=== PATIENT | female | born 1945 | race Caucasian/White ===

== ENCOUNTER 2024-01-05 18:12 | Inpatient (IN) | payer OTHER ==
[2024-01-08] MEDS ORDERED: hydrOXYzine 10 MG TAB PO PRN (17:39)
[2024-01-08] MEDS: Potassium Chloride 10 MEQ TAB PO SCH (22:02)
[2024-01-08] MEDS: Atorvastatin Calcium 10 MG TAB PO SCH (22:03)
[2024-01-08] MEDS: Carvedilol 6.25 MG TAB PO SCH (22:04)
[2024-01-09 04:53] LABS: #Basophils 0.1 thou/uL (0.0-0.2); #Eosinophils 0.4 thou/uL (0.0-0.7); #Lymphocytes 2.6 thou/uL (1.20-3.40); #Monocytes 1.3 thou/uL (0.11-0.59); #Neutrophils 6.3 thou/uL (1.40-6.50); %Basophils 0.8 % (0.0-1.0); %Eosinophils 4.1 % (0.0-10.0); %Lymphocytes 24.5 % (21.0-51.0); %Monocytes 11.8 % (0.0-10.0); %Neutrophils 58.9 % (42.0-75.0); Hematocrit 25.7 % (36.0-47.0); Hemoglobin 8.7 g/dL (12.0-16.0); Mean Corpuscular HGB CONC 33.7 g/dL (32.0-36.0); Mean Corpuscular Hemoglobin 28.3 pg (27.0-31.0); Mean Corpuscular Volume 83.8 fl (78.0-98.0); Mean Platelet Volume 5.3 fL (7.4-10.4); Platelet Count 334 10x3/uL (130-400); RBC Distribution Width 12.7 % (11.5-14.5); Red Blood Cell (RBC) Count 3.07 mill/uL (4.20-5.40); White Blood Cell (WBC) Count 10.7 10x3/uL (4.8-10.8)
[2024-01-09 05:17] LABS: ALT (SGPT) 20 U/L (8-55); AST (SGOT) 29 U/L (5-34); Albumin 2.8 g/dL (3.4-4.8); Alkaline Phosphatase 70 U/L (40-110); Anion Gap 12 mmol/L (10-20); BUN (Urea Nitrogen) 13 mg/dL (9.8-20.1); Bilirubin, Total 0.9 mg/dL (0.2-1.2); Calc. Creatinine Clearance 0 mL/min (70-130); Calcium 9.1 mg/dL (7.8-10.44); Carbon Dioxide 26 mmol/L (23-31); Chloride 101 mmol/L (98-107); Estimated GFR 80; Globulin 2.8 g/dL (2.4-3.5); Glucose 112 mg/dL (83-110); Potassium 5.5 mmol/L (3.5-5.1); Protein, Total 5.6 g/dL (5.8-8.1); Sodium 133 mmol/L (136-145)
[2024-01-09] MEDS: Levothyroxine Sodium 50 MCG TAB PO SCH (05:23)
[2024-01-09] MEDS: Aspirin 325 mg Enteric Coated Tablet PO SCH (09:54)
[2024-01-09] MEDS: Furosemide 40 MG TAB PO SCH (09:55)
[2024-01-09] MEDS: Losartan 50 MG TAB PO SCH (09:55)
[2024-01-09] MEDS: Enoxaparin 40 MG (0.4 mL) SYRINGE SC SCH (09:55)
[2024-01-09] MEDS: Polyethylene Glycol 3350 17 GM Packet PO PRN (09:55)
[2024-01-09] MEDS: traMADol HCl 50 MG TAB PO PRN (10:06)
[2024-01-09] MEDS ORDERED: Potassium Chloride 10 MEQ TAB PO SCH (17:00)
[2024-01-09] MEDS ORDERED: hydrOXYzine 10 MG TAB PO SCH (21:00)
[2024-01-09] MEDS: Sulfameth/Trimethoprim DS 800-160mg TAB PO SCH (21:20)
[2024-01-10] MEDS: Levothyroxine Sodium 25 MCG TAB PO SCH (06:01)
[2024-01-10] MEDS: traMADol HCl 50 MG TAB PO PRN (08:39)
[2024-01-10] MEDS: Ondansetron ODT 4 MG TAB PO PRN (09:17)
[2024-01-10] MEDS: Potassium Chloride 10 MEQ TAB PO SCH (09:18)
[2024-01-10] MEDS: Saccharomyces boulardii 250 MG CAP PO SCH (09:18)
[2024-01-10 10:56] VITALS: BMI 23.1
[2024-01-10] MEDS: Acetaminophen 325 MG TAB PO PRN (12:31)
[2024-01-11] MEDS: traMADol HCl 50 MG TAB PO PRN (14:10)
[2024-01-13] MEDS: Carvedilol 3.125 MG TAB PO SCH (20:49)
[2024-01-13] MEDS ORDERED: Carvedilol 3.125 MG TAB PO SCH (21:00)
[2024-01-14] MEDS: hydrOXYzine 10 MG TAB PO PRN (00:25)
[2024-01-14] MEDS: Losartan 25 MG TAB PO SCH (09:36)
[2024-01-15] MEDS ORDERED: Non-Formulary Item 1 EACH (Alendronate Sodium [Alendronate Sodium] 35 MG Tablet) PO SCH (09:00)
[2024-01-16] MEDS: Zolpidem Tartrate 5 MG TAB PO PRN (20:00)
[2024-01-17] MEDS ORDERED: Levothyroxine Sodium 25 MCG TAB ONE ×2 (09:11→16:30)
[2024-01-17] MEDS ORDERED: Saccharomyces boulardii 250 MG CAP ONE ×2 (09:11→16:30)
[2024-01-17] MEDS ORDERED: Enoxaparin 40 MG (0.4 mL) SYRINGE ONE ×2 (09:11→16:30)
[2024-01-17] MEDS ORDERED: Furosemide 40 MG TAB ONE (09:11)
[2024-01-17] MEDS ORDERED: traMADol HCl 50 MG TAB ONE ×2 (09:11→16:30)
[2024-01-17] MEDS ORDERED: Aspirin 325 mg Enteric Coated Tablet ONE ×2 (09:11→16:30)
[2024-01-17] MEDS ORDERED: Potassium Chloride 10 MEQ TAB ONE ×2 (09:11→16:30)
[2024-01-17] MEDS ORDERED: Carvedilol 3.125 MG TAB ONE ×3 (09:11→16:15)
[2024-01-17] MEDS ORDERED: Losartan 25 MG TAB ONE ×2 (09:11→16:16)
[2024-01-17] MEDS ORDERED: Atorvastatin Calcium 10 MG TAB ONE (16:30)
[2024-01-17] MEDS ORDERED: Zolpidem Tartrate 5 MG TAB ONE (16:30)
[2024-01-18] MEDS ORDERED: Carvedilol 3.125 MG TAB ONE (16:14)
[2024-01-18] MEDS ORDERED: Losartan 25 MG TAB ONE (16:16)
[2024-01-18] MEDS ORDERED: Acetaminophen 325 MG TAB ONE (16:34)
[2024-01-18] MEDS ORDERED: Enoxaparin 40 MG (0.4 mL) SYRINGE ONE (16:34)
[2024-01-18] MEDS ORDERED: Saccharomyces boulardii 250 MG CAP ONE (16:34)
[2024-01-18] MEDS ORDERED: Aspirin 325 mg Enteric Coated Tablet ONE (16:34)
[2024-01-18] MEDS ORDERED: Potassium Chloride 10 MEQ TAB ONE (16:34)
[2024-01-18] MEDS ORDERED: Levothyroxine Sodium 25 MCG TAB ONE (16:34)
[2024-01-18] MEDS ORDERED: Atorvastatin Calcium 10 MG TAB ONE (16:34)
[2024-01-18] MEDS ORDERED: Furosemide 40 MG TAB ONE (16:34)
[2024-01-18] MEDS ORDERED: Zolpidem Tartrate 5 MG TAB ONE (16:34)
[2024-01-19 14:19] LABS: #Basophils 0.1 thou/uL (0.0-0.2); #Eosinophils 0.2 thou/uL (0.0-0.7); #Lymphocytes 1.6 thou/uL (1.20-3.40); #Monocytes 0.7 thou/uL (0.11-0.59); #Neutrophils 4.8 thou/uL (1.40-6.50); %Basophils 1.9 % (0.0-1.0); %Eosinophils 2.7 % (0.0-10.0); %Lymphocytes 21.3 % (21.0-51.0); %Monocytes 8.9 % (0.0-10.0); %Neutrophils 65.3 % (42.0-75.0); Hemoglobin 10.2 g/dL (12.0-16.0); Mean Corpuscular HGB CONC 31.7 g/dL (32.0-36.0); Mean Corpuscular Hemoglobin 27.2 pg (27.0-31.0); Mean Corpuscular Volume 85.7 fl (78.0-98.0); Mean Platelet Volume 5.6 fL (7.4-10.4); Platelet Count 531 10x3/uL (130-400); RBC Distribution Width 13.9 % (11.5-14.5); Red Blood Cell (RBC) Count 3.74 mill/uL (4.20-5.40); White Blood Cell (WBC) Count 7.4 10x3/uL (4.8-10.8)
[2024-01-19 14:36] LABS: ALT (SGPT) 25 U/L (8-55); AST (SGOT) 29 U/L (5-34); Albumin 3.5 g/dL (3.4-4.8); Alkaline Phosphatase 128 U/L (40-110); Anion Gap 16 mmol/L (10-20); BUN (Urea Nitrogen) 8 mg/dL (9.8-20.1); Bilirubin, Total 0.7 mg/dL (0.2-1.2); Calc. Creatinine Clearance 58 mL/min (70-130); Calcium 9.5 mg/dL (7.8-10.44); Carbon Dioxide 26 mmol/L (23-31); Chloride 99 mmol/L (98-107); Estimated GFR 75; Glucose 105 mg/dL (83-110); Potassium 3.7 mmol/L (3.5-5.1); Protein, Total 6.5 g/dL (5.8-8.1); Sodium 137 mmol/L (136-145)
[2024-01-19] MEDS ORDERED: Acetaminophen 325 MG TAB ONE (16:39)
[2024-01-19] MEDS ORDERED: Levothyroxine Sodium 25 MCG TAB ONE (16:39)
[2024-01-22] MEDS: traMADol HCl 50 MG TAB PO SCH (12:28)
[2024-01-23] MEDS: traMADol HCl 50 MG TAB PO PRN (20:17)
[2024-01-24] MEDS: Acetaminophen 325 MG TAB PO PRN (02:39)
[2024-01-24 17:42] VITALS: TEMP 98.4
[2024-01-25 06:05] VITALS: BP 118/72
[2024-01-25 08:21] LABS: #Basophils 0.1 thou/uL (0.0-0.2); #Eosinophils 0.2 thou/uL (0.0-0.7); #Lymphocytes 1.5 thou/uL (1.20-3.40); #Monocytes 0.6 thou/uL (0.11-0.59); #Neutrophils 3.8 thou/uL (1.40-6.50); %Basophils 1.3 % (0.0-1.0); %Eosinophils 3.5 % (0.0-10.0); %Lymphocytes 23.5 % (21.0-51.0); %Monocytes 10.1 % (0.0-10.0); %Neutrophils 61.6 % (42.0-75.0); Hemoglobin 10.7 g/dL (12.0-16.0); Mean Corpuscular HGB CONC 31.6 g/dL (32.0-36.0); Mean Corpuscular Hemoglobin 27.5 pg (27.0-31.0); Mean Corpuscular Volume 86.9 fl (78.0-98.0); Mean Platelet Volume 5.7 fL (7.4-10.4); Platelet Count 378 10x3/uL (130-400); RBC Distribution Width 14.1 % (11.5-14.5); Red Blood Cell (RBC) Count 3.91 mill/uL (4.20-5.40); White Blood Cell (WBC) Count 6.2 10x3/uL (4.8-10.8)
[2024-01-25 08:30] LABS: Anion Gap 14 mmol/L (10-20); BUN (Urea Nitrogen) 9 mg/dL (9.8-20.1); Calc. Creatinine Clearance 64 mL/min (70-130); Calcium 9.5 mg/dL (7.8-10.44); Carbon Dioxide 27 mmol/L (23-31); Chloride 99 mmol/L (98-107); Estimated GFR 84; Glucose 102 mg/dL (83-110); Potassium 3.7 mmol/L (3.5-5.1); Sodium 136 mmol/L (136-145)
== END 2024-01-25 14:30 | disposition home or self-care (01) | DRG 946 ==
LOC: BURMED 01-08 16:55
PROVIDERS: ADMIT Family Medicine; ATTEND Family Medicine
PROC: F07Z9ZZ Gait Training/Functional Ambulation Treatment (ICD-10-PCS; principal; 2024-01-19)
DX: R53.81 Other malaise (principal); R26.89 Other abnormalities of gait and mobility; E03.9 Hypothyroidism, unspecified; I25.10 Atherosclerotic heart disease of native coronary artery without angina pectoris; E78.5 Hyperlipidemia, unspecified; I10 Essential (primary) hypertension; M81.0 Age-related osteoporosis without current pathological fracture; D64.9 Anemia, unspecified; F32.A Depression, unspecified; Z95.1 Presence of aortocoronary bypass graft; Z88.8 Allergy status to other drugs, medicaments and biological substances; Z79.899 Other long term (current) drug therapy; Z79.82 Long term (current) use of aspirin; Z79.890 Hormone replacement therapy; Z95.810 Presence of automatic (implantable) cardiac defibrillator; Z90.710 Acquired absence of both cervix and uterus
CPT/HCPCS: 36415; 80048; 80053; 85025; J1650; Q0162